=== PATIENT | male | born 1945 | race African-American/Black ===

== ENCOUNTER 2018-12-13 06:44 | Day surgery (SDC) | payer MEDICAID ==
[~2018-12-13] VITALS: Ht 167.6 cm; Wt 73.6 kg
[~2018-12-13 06:44] MED LIST: SODIUM CHLORIDE 0.9% 1,000 ML IV ONE
[2018-12-13] MEDS ORDERED: ALBUTEROL SULFATE 2.5 MG/0.5 ML NEB SOLUTION NEB ONE (06:45)
[2018-12-13] MEDS ORDERED: LIDOCAINE 2% 11 ML JELLY TP ONE (06:45)
[2018-12-13] MEDS ORDERED: BENZOCAINE 20% 50 MCG/SPRAY 57 GM TP ONE (06:45)
[2018-12-13] MEDS ORDERED: D-ME118S13 PO (07:06)
[2018-12-13] MEDS ORDERED: FLUT16H NASAL (07:06)
[2018-12-13] MEDS ORDERED: WARF3TAB29 PO (07:06)
[2018-12-13] MEDS ORDERED: GABA-529 PO (07:06)
[2018-12-13] MEDS ORDERED: POTA8CAP10 PO (07:06)
[2018-12-13] MEDS ORDERED: FURO40I IM (07:06)
[2018-12-13] MEDS ORDERED: DIGO250T84 PO (07:06)
[2018-12-13] MEDS ORDERED: BENZ-51 PO (07:06)
[2018-12-13] MEDS ORDERED: MIDAZOLAM HCL 2 MG/2 ML VIAL ONE (07:39)
[2018-12-13] MEDS ORDERED: FentaNYL CITRATE-PF 100 MCG/2 ML VIAL ONE (07:39)
[2018-12-13] MEDS ORDERED: MethylPREDNISolone SOD SUCC 125 MG/2 ML VIAL IVP ONE (09:45)
[2018-12-13] MEDS ORDERED: OXYGEN THERAPY IH SCH (20:00)
== END 2018-12-13 11:30 | disposition home or self-care (01) ==
LOC: SURGERY 06:44
PROVIDERS: ATTEND Internal Medicine Critical Care Medicine
DX: J38.4 Edema of larynx (principal); B37.0 Candidal stomatitis; I50.9 Heart failure, unspecified; I48.91 Unspecified atrial fibrillation; Z87.891 Personal history of nicotine dependence
CPT/HCPCS: 31623; 31624; 71045; 87015; 87070; 87101; 87205; 87206; 87220; 88108; 88312; 93005; J2250; J2930; J3010; J7030